=== PATIENT | male | born 1960 | race American Indian/Alaskan Native ===

== ENCOUNTER 2017-10-14 13:37 | Inpatient (IN) | payer OTHER ==
[2017-10-14] MEDS ORDERED: Albuterol-Ipratrop 3 mg / 0.5 (3 ml) UD IH STA (14:14)
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
[2017-10-14 14:36] LABS: BASO # 0.01 K/mm3 (0.0-2.0); BASO % 0.1 % (0.0-3.0); GRAN # 11.84 (1.4-6.5); GRAN % 81.3 % (50.0-68.0); HEMATOCRIT 42.3 % (42.0-52.0); LYMPH # 1.6 (1.2-3.4); LYMPH % 10.9 % (22.0-35.0); MEAN CELL VOLUME 87.8 fl (80.0-105.0); MEAN CORPUSCULAR HEMOGLOBIN 30.1 pg (25.0-35.0); MEAN CORPUSCULAR HGB CONC 34.3 g/dl (31.0-37.0); MEAN PLATELET VOLUME 11.8 fl (7.0-11.0); MONO # 1.1 (0.1-0.6); MONO % 7.7 % (1.0-6.0); RED CELL DISTRIBUTION WIDTH 12.8 % (11.5-14.5); WHITE BLOOD COUNT 14.6 10^3/ul (4.5-11.0)
[2017-10-14 14:57] LABS: INR 1.52 (0.93-1.08); PARTIAL THROMBOPLASTIN TIME 34.1 Seconds (25.1-36.5)
[2017-10-14] MEDS: Lactated Ringer's 1,000 ML IV SCH ×4 (15:04→19:40)
[2017-10-14 15:10] LABS: ALB/GLOB RATIO 0.7 (1.1-1.8); ALKALINE PHOSPHATASE 104 U/L (38-126); ALT/SGPT 62 U/L (7-56); AST/SGOT 62 U/L (17-59); CALCIUM 9.5 mg/dL (8.4-10.5); CARBON DIOXIDE 26 mmol/L (21-33); CHLORIDE 93 mmol/L (98-107); GFR AFRICAN-AMERICAN 58
[2017-10-14 15:11] LABS: BILIRUBIN,TOTAL 1.6 mg/dL (0.2-1.3); BLOOD UREA NITROGEN 18 mg/dL (7-21); GLUCOSE,RANDOM 117 mg/dL (70-110); MAGNESIUM 1.4 mg/dL (1.7-2.2); POTASSIUM 3.7 mmol/L (3.6-5.0); SODIUM 131 mmol/L (132-148); TOTAL PROTEIN 9.4 g/dL (5.8-8.3); TROPONIN I < 0.01 ng/mL
[2017-10-14] MEDS ORDERED: Magnesium Sulfate 1 gm in D5W 1 GM/100 ML BAG IVPB ONE (15:38)
[2017-10-14] MEDS ORDERED: Iodixanol 320 MG/ML 100 ML BOTTLE IV ONE (15:47)
[2017-10-14] MEDS ORDERED: Piperacill/Tazo 4.5gm in NS 4.5 GM/100 ML BAG IVPB STA (16:52)
[2017-10-14 17:27] LABS: VENOUS BLOOD GAS BASE EXCESS 2.1 mmol/L (0.0-2.0); VENOUS BLOOD PH 7.47 (7.32-7.43)
--- NOTE | 2017-10-14 17:51 | CT ---
PROCEDURE: CT Chest with contrast (Pulmonary Angiogram) HISTORY: 57yoM, hemoptysis, elevated d-dimer. please eval. COMPARISON: None available. TECHNIQUE: Axial computed tomography images were obtained of the chest in the pulmonary arterial phase of enhancement. Coronal and sagittal reformatted images were created and reviewed. . Note that the study is somewhat limited due to suboptimal opacification of the pulmonary vasculature Intravenous contrast dose: 90 cc Visipaque 320 contrast. Tech all Radiation dose: Total exam DLP = 754.26 mGy-cm. This CT exam was performed using one or more of the following dose reduction techniques: Automated exposure control, adjustment of the mA and/or kV according to patient size, and/or use of iterative reconstruction technique. FINDINGS: PULMONARY ARTERIES: The visualized of pulmonary trunk as well as the right and left main pulmonary arteries are well opacified with no large central pulmonary embolus. The right lower and to a lesser degree distal left lower lobe and segmental pulmonary artery branches not well seen due to the aforementioned consolidation/atelectasis overall the main lobar branches appear. Note however that the few right upper and lower lobe segmental branches exhibit areas of diminished contrast which could represent artifact the possibility of nonocclusive small pulmonary emboli cannot be excluded. Pulmonary trunk measures approximately 2.95 cm. AORTA: Ascending thoracic aorta measures approximately 3.14 cm and descending thoracic aorta measures approximately 2.35 cm. LUNGS: There is relatively dense consolidation/ atelectatic changes in the medial aspect right posterior sulcus - lung base. There also at linear areas of scarring and or atelectasis in the superior aspect of the right lower lobe extending to the pleural surface as well as anterior right lung base and middle lobe regions. Linear/nodular atelectasis and/or minor consolidation changes also seen in the left posterior sulcus with scarring and atelectasis in the left anterior lower lobe and lingular region. . PLEURAL SPACES: No evidence of pneumothorax. No effusion. HEART: The heart is normal size. No significant pericardial effusion. LYMPH NODES: No lymphadenopathy. BONES, CHEST WALL: Multilevel degenerative spondylosis of the thoracic spine. There is a prominent posterior bridging osteophyte at T6-T7 level which compresses the ventral surface of the thecal sac and presumably mildly compresses the ventral surface of the cord. Degenerative spondylosis lower cervical spine also noted. OTHER FINDINGS: Spleen is upper limits of normal measuring approximately 12.5 cm in AP dimension. . There may be some minimal fatty hepatic infiltration. The remaining visualized upper abdominal structures appear grossly unremarkable. IMPRESSION: Limited study as described. There is an area of consolidation/ atelectasis in the posteromedial aspect right lower lobe with areas of scarring/ atelectasis in both lung bases including the middle lobe and lingular regions. . Linear atelectasis/scarring also seen in the superior on segment right lower lobe. There are a few small segmental pulmonary artery branches in the upper lobes that exhibits diminished contrast enhancement which could represent artifact though the possibility of a few small nonocclusive emboli cannot be excluded. Clinical correlation recommended.
[2017-10-14] MEDS ORDERED: Azithromycin 500MG/NS 250ml 500 MG/250 ML BAG IVPB STA (18:23)
[2017-10-14 22:44] VITALS: BMI 29.9
[2017-10-15] MEDS: Sodium Chloride 0.9% 1,000 ML IV SCH ×2 (00:36→11:11)
[2017-10-15] MEDS ORDERED: Piperacillin/Tazobact 3.375 gm 100 ML IVPB SCH (06:00)
[2017-10-15 06:53] LABS: BASO # 0.02 K/mm3 (0.0-2.0); BASO % 0.2 % (0.0-3.0); EOS % 0.1 % (1.5-5.0); GRAN # 10.13 (1.4-6.5); GRAN % 81.8 % (50.0-68.0); HEMATOCRIT 37.6 % (42.0-52.0); LYMPH # 1.6 (1.2-3.4); LYMPH % 12.5 % (22.0-35.0); MEAN CELL VOLUME 88.1 fl (80.0-105.0); MEAN CORPUSCULAR HEMOGLOBIN 29.5 pg (25.0-35.0); MEAN CORPUSCULAR HGB CONC 33.5 g/dl (31.0-37.0); MEAN PLATELET VOLUME 11.6 fl (7.0-11.0); MONO # 0.7 (0.1-0.6); MONO % 5.4 % (1.0-6.0); RED CELL DISTRIBUTION WIDTH 13.3 % (11.5-14.5); WHITE BLOOD COUNT 12.4 10^3/ul (4.5-11.0)
[2017-10-15 07:10] LABS: BLOOD UREA NITROGEN 16 mg/dL (7-21); CALCIUM 8.7 mg/dL (8.4-10.5); CARBON DIOXIDE 30 mmol/L (21-33); CHLORIDE 98 mmol/L (98-107); GFR AFRICAN-AMERICAN > 60; GLUCOSE,RANDOM 98 mg/dL (70-110); POTASSIUM 3.9 mmol/L (3.6-5.0); SODIUM 136 mmol/L (132-148)
[2017-10-15] MEDS: Lactated Ringer's 1,000 ML IV SCH (09:43)
[2017-10-15] MEDS: cefTRIAXone 1 gm 1 GM/100 ML BAG IVPB SCH (10:27)
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
[2017-10-15] MEDS: Azithromycin 500MG/NS 250ml 500 MG/250 ML BAG IVPB SCH (11:00)
[2017-10-15] MEDS: Vancomycin 1gm in NS 250ml 1 GM/250 ML BAG IVPB SCH ×2 (11:07→22:14)
--- NOTE | 2017-10-15 20:09 | CARD ---
APPROVED REPORT EKG Measurement Heart [id number] <Conclusion> Sinus tachycardia Otherwise normal ECG
[2017-10-16] MEDS: Vancomycin 1gm in NS 250ml 1 GM/250 ML BAG IVPB SCH ×2 (09:00→22:06)
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
[2017-10-16] MEDS: cefTRIAXone 1 gm 1 GM/100 ML BAG IVPB SCH (11:38)
[2017-10-16] MEDS: Sodium Chloride 0.9% 1,000 ML IV SCH (11:39)
--- NOTE | 2017-10-16 13:07 | US ---
HISTORY: Leg pain and swelling. Evaluate for DVT PHYSICIAN(S): Mika Courtney MD. TECHNIQUE: Duplex sonography and color-flow Doppler with graded compression were used to evaluate the deep venous systems of both lower extremities. FINDINGS: The visualized deep venous systems of both lower extremities are sonographically normal and compressible. Normal wave forms and augmentation are seen. There is no sonographic evidence for deep venous thrombosis in the visualized segments of both lower extremities. IMPRESSION: No sonographic evidence for deep venous thrombosis in the visualized segments of both lower extremities.
[2017-10-16] MEDS: Azithromycin 500MG/NS 250ml 500 MG/250 ML BAG IVPB SCH (14:30)
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
--- NOTE | 2017-10-16 22:37 | CARD ---
APPROVED REPORT EXAM: Two-dimensional and M-mode echocardiogram with Doppler and color Doppler. INDICATION Infection:Rule out subacute bacterial endocarditis 2D DIMENSIONS Left Atrium (2D)4.2 (1.6-4.0cm)IVSd1.3 (0.7-1.1cm) LVDd4.7 (3.9-5.9cm)PWd1.3 (0.7-1.1cm) LVDs3.3 (2.5-4.0cm)FS (%) 29.2 % LVEF (%)55.9 (>50%) M-Mode DIMENSIONS Aortic Root3.10 (2.2-3.7cm)Aortic Cusp Exc.1.60 (1.5-2.0cm) Aortic Valve AoV Peak Noreivqb068.0cm/Sandee Peak GR.8mmHg Mitral Valve MV E Gvawlhef10.6cm/sMV A Bplvptmb56.5cm/sE/A ratio0.9 TDI Lateral E' Peak V10.50cm/sMedial E' Peak V6.73cm/sE/Lateral E'6.9 E/Medial E'10.8 Pulmonary Valve PV Peak Ehweqawn87.2cm/sPV Peak Grad.2mmHg Tricuspid Valve TR Peak Mavfirbh316om/sRAP EKZAGMIC31pmZfWL Peak Gr.31mmHg [id number] LEFT VENTRICLE The left ventricle is normal size. There is mild concentric left ventricular hypertrophy. The left ventricular function is normal. The left ventricular ejection fraction is within the normal range. There is normal LV segmental wall motion. Transmitral Doppler flow pattern is Grade I-abnormal relaxation pattern. RIGHT VENTRICLE The right ventricle is normal size. There is normal right ventricular wall thickness. The right ventricular systolic function is normal. ATRIA The left atrium is borderline dilated. The right atrium size is normal. AORTIC VALVE The aortic valve is moderately thickened, a vegitation can not be ruled out No aortic regurgitation is present. MITRAL VALVE The mitral valve is mildly thickened. There is no mitral valve regurgitation noted. There is no mitral valve stenosis. TRICUSPID VALVE There is mild tricuspid regurgitation. There is mild pulmonary hypertension. GREAT VESSELS The aortic root is normal in size. The IVC is normal in size and collapses >50% with inspiration. <Conclusion> The left ventricle is normal size. There is mild concentric left ventricular hypertrophy. The left ventricular function is normal. The left ventricular ejection fraction is within the normal range. There is normal LV segmental wall motion. Transmitral Doppler flow pattern is Grade I-abnormal relaxation pattern. There is mild tricuspid regurgitation. There is mild pulmonary hypertension. The aortic valve is moderately thickened, a vegitation can not be ruled out
--- NOTE | 2017-10-17 01:22 | CP.PCM.PN ---
Subjective - Date & Time of Evaluation Date of Evaluation: 10/16/17 Time of Evaluation: 10:30 - Subjective Subjective: Seen and examined at the bed side. Still continue to cough and Less Hemoptysis. Denies fever. +Chills. ON Airborne Isolation. ID input appreciated. Objective - Vital Signs/Intake and Output Vital Signs (last 24 hours): Temp Pulse Resp BP Pulse Ox 98.9 F 85 20 140/98 H 98 10/16/17 16:00 10/16/17 16:00 10/16/17 16:00 10/16/17 16:00 10/16/17 16:00 Intake and Output: 10/16/17 10/17/17 18:59 06:59 Intake Total 600 480 Output Total 200 1000 Balance 400 -520 - Medications Medications: Current Medications Acetaminophen (Tylenol 325mg Tab) 650 mg PO Q6H PRN PRN Reason: Fever >100.5 F Last Admin: 10/15/17 00:38 Dose: 650 mg Acetaminophen (Tylenol 325mg Tab) 650 mg PO Q4H PRN PRN Reason: Fever >100.4 F Amlodipine Besylate (Norvasc) 10 mg PO DAILY [facility] Last Admin: 10/16/17 11:31 Dose: 10 mg Azithromycin (Zithromax 500mg In Ns) 500 mg in 250 mls @ 167 mls/hr IVPB DAILY [facility] PRN Reason: Protocol Last Admin: 10/16/17 14:30 Dose: 167 mls/hr Sodium Chloride (Sodium Chloride 0.9%) 1,000 mls @ 100 mls/hr IV .Q10H [facility] Last Admin: 10/16/17 11:39 Dose: 100 mls/hr Ceftriaxone Sodium (Rocephin 1 Gram Ivpb (D5w)) 1 gm in 100 mls @ 100 mls/hr IVPB DAILY [facility] PRN Reason: Protocol Last Admin: 10/16/17 11:38 Dose: 100 mls/hr Vancomycin HCl (Vancomycin 1gm) 1 gm in 250 mls @ 167 mls/hr IVPB Q12H [facility] PRN Reason: Protocol Last Admin: 10/16/17 22:06 Dose: 167 mls/hr - Labs Labs: 10/15/17 06:00 10/15/17 06:00 PT 16.7 SECONDS (9.4-12.5) H 10/14/17 14:20 INR 1.52 (0.93-1.08) H 10/14/17 14:20 APTT 34.1 Seconds (25.1-36.5) 10/14/17 14:20 - Constitutional Appears: Well, No Acute Distress - Head Exam Head Exam: ATRAUMATIC, NORMAL INSPECTION, NORMOCEPHALIC - Eye Exam Eye Exam: EOMI, Normal appearance, PERRL Pupil Exam: NORMAL ACCOMODATION, PERRL - ENT Exam ENT Exam: Mucous Membranes Moist, Normal Exam - Neck Exam Neck Exam: Full ROM, Normal Inspection. absent: Lymphadenopathy - Respiratory Exam Respiratory Exam: Clear to Ausculation Bilateral, Rales. absent: Rhonchi, Wheezes - Cardiovascular Exam Cardiovascular Exam: REGULAR RHYTHM, +S1, +S2. absent: Murmur - GI/Abdominal Exam GI & Abdominal Exam: Soft, Normal Bowel Sounds. absent: Tenderness - Extremities Exam Extremities Exam: Full ROM, Normal Capillary Refill, Normal Inspection. absent : Joint Swelling, Pedal Edema - Back Exam Back Exam: NORMAL INSPECTION - Neurological Exam Neurological Exam: Alert, Awake, CN II-XII Intact, Normal Gait, Oriented x3 - Psychiatric Exam Psychiatric exam: Normal Affect, Normal Mood - Skin Skin Exam: Dry, Intact, Normal Color, Warm Assessment and Plan (1) Sepsis Assessment & Plan: Pneumonia Hemoptysis H/O HIV AFB X3 Sputum Cultures Blood Culture- +Staph IV Azithromycin/Vancomycin/Zosyn HIV Viral Load and CD4 Count ID onboard 2D Echo Status: Acute Priority: High (2) Essential (primary) hypertension (3) HIV/AIDS HIV Viral Load CD4 Count Status: Resolved
[2017-10-17] MEDS: Sodium Chloride 0.9% 1,000 ML IV SCH ×4 (06:00→22:36)
[2017-10-17] MEDS: Azithromycin 500MG/NS 250ml 500 MG/250 ML BAG IVPB SCH (10:24)
[2017-10-17] MEDS: cefTRIAXone 1 gm 1 GM/100 ML BAG IVPB SCH (13:05)
[2017-10-17] MEDS: Vancomycin 1gm in NS 250ml 1 GM/250 ML BAG IVPB SCH (13:06)
--- NOTE | 2017-10-17 15:59 | PN ---
DATE: 10/17/2017 SUBJECTIVE: The patient is in bed, in no acute distress, nontoxic. PHYSICAL EXAMINATION: VITAL SIGNS: Temperature is 98, blood pressure is 140/80, respiratory rate of 20. HEENT: Unremarkable and supple. LUNGS: Have decreased breath sounds. HEART: Normal S1, S2. ABDOMEN: Soft, nontender. LABORATORY DATA: Reveals a white count of 12,400, hemoglobin of 12, platelets of 142. Chemistries reveals a BUN of 16, creatinine of 1.2. Serology is noted. HIV is positive, reactive, influenza is negative. Microbiology reveals the strep pneumoniae in the blood cultures. ASSESSMENT AND PLAN: A 57-year-old male seen early this morning with sepsis with right-sided community-acquired pneumonia with strep pneumonia bacteremia with hypertension with positive human immunodeficiency virus test. With acid-fast stains negative, may discontinue isolation. Strep pneumoniae bacteremia does not require isolation. Awaiting for HIV viral load and CD-4 count. Currently, on ceftriaxone daily and vancomycin. The Strep pneumoniae in the blood is pansensitive, oxacillin sensitive, vancomycin sensitive and penicillin sensitive. We will discontinue the vancomycin. Will need to repeat blood cultures, document negative blood cultures, can discontinue the isolation. We will also discontinue Zithromax, and the patient had an echo yesterday which according to Dr. Lou, aortic valve is moderately thickened and vegetation cannot be ruled out. We will check on the repeat blood cultures and discontinue the isolation. We will also increase the ceftriaxone dose for endocarditis dosing. We will discontinue 1 g q. 24 hours to 2 g q. 24 hours, and we will make further recommendation. We will discuss with the patient regarding his HIV status, and the patient did have a CT scan of the chest with consolidation and changes in the medial aspect of the lung base, and we will make further recommendations. Dillan Henson MD
--- NOTE | 2017-10-17 18:07 | CP.PCM.PN ---
Subjective - Date & Time of Evaluation Date of Evaluation: 10/17/17 Time of Evaluation: 09:30 - Subjective Subjective: Seen and examined at the bed side. AFB X3 Negative, and Gold Interferon- Negative. D/C airborne Isolation. Objective - Vital Signs/Intake and Output Vital Signs (last 24 hours): Temp Pulse Resp BP Pulse Ox 98.9 F 75 18 143/85 100 10/17/17 07:30 10/17/17 07:30 10/17/17 07:30 10/17/17 10:15 10/17/17 07:30 Intake and Output: 10/17/17 10/17/17 06:59 18:59 Intake Total 720 480 Output Total 1000 Balance -280 480 - Medications Medications: Current Medications Acetaminophen (Tylenol 325mg Tab) 650 mg PO Q6H PRN PRN Reason: Fever >100.5 F Last Admin: 10/15/17 00:38 Dose: 650 mg Acetaminophen (Tylenol 325mg Tab) 650 mg PO Q4H PRN PRN Reason: Fever >100.4 F Amlodipine Besylate (Norvasc) 10 mg PO DAILY [facility] Last Admin: 10/17/17 10:15 Dose: 10 mg Sodium Chloride (Sodium Chloride 0.9%) 1,000 mls @ 100 mls/hr IV .Q10H [facility] Last Admin: 10/17/17 12:46 Dose: 100 mls/hr Ceftriaxone Sodium (Rocephin 2 Gm Ivpb) 2 gm in 100 mls @ 100 mls/hr IVPB DAILY [facility] PRN Reason: Protocol Stop: 10/27/17 10:01 - Labs Labs: 10/15/17 06:00 10/15/17 06:00 PT 16.7 SECONDS (9.4-12.5) H 10/14/17 14:20 INR 1.52 (0.93-1.08) H 10/14/17 14:20 APTT 34.1 Seconds (25.1-36.5) 10/14/17 14:20 - Constitutional Appears: Well, No Acute Distress - Head Exam Head Exam: ATRAUMATIC, NORMAL INSPECTION, NORMOCEPHALIC - Eye Exam Eye Exam: EOMI, Normal appearance, PERRL Pupil Exam: NORMAL ACCOMODATION, PERRL - ENT Exam ENT Exam: Mucous Membranes Moist, Normal Exam - Neck Exam Neck Exam: Full ROM, Normal Inspection. absent: Lymphadenopathy - Respiratory Exam Respiratory Exam: Clear to Ausculation Bilateral, NORMAL BREATHING PATTERN - Cardiovascular Exam Cardiovascular Exam: REGULAR RHYTHM, +S1, +S2. absent: Murmur - GI/Abdominal Exam GI & Abdominal Exam: Soft, Normal Bowel Sounds. absent: Tenderness - Exam Exam: NORMAL INSPECTION External exam: NORMAL EXTERNAL EXAM Speculum exam: NORMAL SPECULUM EXAM Bimanual exam: NORMAL BIMANUAL EXAM - Extremities Exam Extremities Exam: Full ROM, Normal Capillary Refill, Normal Inspection. absent : Joint Swelling, Pedal Edema - Back Exam Back Exam: NORMAL INSPECTION - Neurological Exam Neurological Exam: Alert, Awake, CN II-XII Intact, Normal Gait, Oriented x3 - Psychiatric Exam Psychiatric exam: Normal Affect, Normal Mood - Skin Skin Exam: Dry, Intact, Normal Color, Warm Assessment and Plan (1) Sepsis Assessment & Plan: S. PNA Bactremia Pneumonia- Improving Hemoptysis-resolved H/O HIV AFB X3- Negative Sputum Cultures Blood Culture- +Strep Pneumoniea IV Azithromycin/Vancomycin/Zosyn ID onboard Status: Acute Priority: High (2) Essential (primary) hypertension (3) HIV/AIDS HIV Viral Load CD4 Count Status: Resolved
--- NOTE | 2017-10-18 09:45 | PN ---
DATE: 10/18/2017 SUBJECTIVE: The patient is in bed in no acute distress, nontoxic. No fevers or chills. PHYSICAL EXAMINATION: VITAL SIGNS: The patient's temperature is 98, blood pressure is 130/80, and respiratory rate of 18. HEENT: Examination of HEENT is unremarkable. NECK: Supple. LUNGS: Have decreased breath sounds. HEART: Normal S1 and S2. GASTROINTESTINAL: Abdominal examination is soft and nontender. LABORATORY DATA: Laboratory examination reveals a white count of 12,400, hemoglobin of 12, and platelets of 142. Coagulation is noted and the chemistries reveals a BUN of 18, and creatinine of 1.5. AST is 62 and ALT is 62. Procalcitonin is 1.32. Immunology reveals the patient's CD4 count is 18% with an absolute CD4 count of 211. With the patient's HIV is reactive, influenza is negative. Urine Legionella antigen is negative and QuantiFERON is negative. Microbiology reveals the Strep pneumonia in the blood and repeat blood cultures are no growth. The Strep pneumoniae is pansensitive. Dr. Natasha Natarajan's progress note is reviewed. ASSESSMENT AND PLAN: This is a 57-year-old male who I have seen this morning, admitted with sepsis with right-sided community-acquired pneumonia with Streptococcus pneumonia, bacteremia with a history of hypertension, now found to have positive human immunodeficiency virus test with T-cells of 18% and 211 absolute count and awaiting for a human immunodeficiency virus and polymerase chain reaction. The patient did have an echocardiogram. We will check on the repeat final cultures which is so far 24 hours are negative and we will continue the ceftriaxone at this point. We will discuss with the patient's human immunodeficiency virus status once I have the human immunodeficiency virus, polymerase chain reaction viral load. Dillan Henson MD
[2017-10-18] MEDS: cefTRIAXone 2 GM IN NS 2 GM/100 ML BAG IVPB SCH (10:20)
[2017-10-18] MEDS: Sodium Chloride 0.9% 1,000 ML IV SCH (18:30)
--- NOTE | 2017-10-19 02:17 | CP.PCM.PN ---
Subjective - Date & Time of Evaluation Date of Evaluation: 10/18/17 Time of Evaluation: 13:00 - Subjective Subjective: Seen and examined at the bed side. Continues to cough. Repeat Blood cultures. Denies chest pain. No More hemoptysis. Collecting sputum for G/s and C/S. Objective - Vital Signs/Intake and Output Vital Signs (last 24 hours): Temp Pulse Resp BP Pulse Ox 98.4 F 83 20 150/95 H 95 10/18/17 17:14 10/18/17 17:14 10/18/17 17:14 10/18/17 17:14 10/18/17 17:14 Intake and Output: 10/18/17 10/19/17 18:59 06:59 Intake Total 660 Balance 660 - Medications Medications: Current Medications Acetaminophen (Tylenol 325mg Tab) 650 mg PO Q6H PRN PRN Reason: Fever >100.5 F Last Admin: 10/15/17 00:38 Dose: 650 mg Acetaminophen (Tylenol 325mg Tab) 650 mg PO Q4H PRN PRN Reason: Fever >100.4 F Amlodipine Besylate (Norvasc) 10 mg PO DAILY [facility] Last Admin: 10/18/17 10:21 Dose: 10 mg Sodium Chloride (Sodium Chloride 0.9%) 1,000 mls @ 100 mls/hr IV .Q10H [facility] Last Admin: 10/18/17 18:30 Dose: 100 mls/hr Ceftriaxone Sodium (Rocephin 2 Gm Ivpb) 2 gm in 100 mls @ 100 mls/hr IVPB DAILY [facility] PRN Reason: Protocol Stop: 10/27/17 10:01 Last Admin: 10/18/17 10:20 Dose: 100 mls/hr - Labs Labs: 10/15/17 06:00 10/15/17 06:00 PT 16.7 SECONDS (9.4-12.5) H 10/14/17 14:20 INR 1.52 (0.93-1.08) H 10/14/17 14:20 APTT 34.1 Seconds (25.1-36.5) 10/14/17 14:20 - Constitutional Appears: Well, No Acute Distress - Head Exam Head Exam: ATRAUMATIC, NORMAL INSPECTION, NORMOCEPHALIC - Eye Exam Eye Exam: EOMI, Normal appearance, PERRL Pupil Exam: NORMAL ACCOMODATION, PERRL - ENT Exam ENT Exam: Mucous Membranes Moist, Normal Exam - Neck Exam Neck Exam: Full ROM, Normal Inspection. absent: Lymphadenopathy - Respiratory Exam Respiratory Exam: Clear to Ausculation Bilateral, NORMAL BREATHING PATTERN - Cardiovascular Exam Cardiovascular Exam: REGULAR RHYTHM, +S1, +S2. absent: Murmur - GI/Abdominal Exam GI & Abdominal Exam: Soft, Normal Bowel Sounds. absent: Tenderness - Extremities Exam Extremities Exam: Full ROM, Normal Capillary Refill, Normal Inspection. absent : Joint Swelling, Pedal Edema - Back Exam Back Exam: NORMAL INSPECTION - Neurological Exam Neurological Exam: Alert, Awake, CN II-XII Intact, Normal Gait, Oriented x3 - Psychiatric Exam Psychiatric exam: Normal Affect, Normal Mood - Skin Skin Exam: Dry, Intact, Normal Color, Warm Assessment and Plan (1) Sepsis Assessment & Plan: Pneumonia Hemoptysis H/O HIV AFB X3 Sputum Cultures Blood Culture- +Staph IV Azithromycin/Vancomycin/Zosyn HIV Viral Load and CD4 Count ID onboard 2D Echo Status: Acute Priority: High (2) Essential (primary) hypertension (3) HIV/AIDS HIV Viral Load CD4 Count Status: Resolved
[2017-10-19] MEDS: Sodium Chloride 0.9% 1,000 ML IV SCH (05:31)
[2017-10-19] MEDS: cefTRIAXone 2 GM IN NS 2 GM/100 ML BAG IVPB SCH (10:14)
[2017-10-19 12:48] LABS: HEMATOCRIT 38.2 % (42.0-52.0); MEAN CELL VOLUME 87.8 fl (80.0-105.0); MEAN CORPUSCULAR HEMOGLOBIN 29.7 pg (25.0-35.0); MEAN CORPUSCULAR HGB CONC 33.8 g/dl (31.0-37.0); MEAN PLATELET VOLUME 11.2 fl (7.0-11.0); RED CELL DISTRIBUTION WIDTH 13.2 % (11.5-14.5); WHITE BLOOD COUNT 4.7 10^3/ul (4.5-11.0)
[2017-10-19 13:08] LABS: ALB/GLOB RATIO 0.7 (1.1-1.8); ALKALINE PHOSPHATASE 85 U/L (38-126); ALT/SGPT 106 U/L (7-56); AST/SGOT 86 U/L (17-59); BILIRUBIN,TOTAL 0.3 mg/dL (0.2-1.3); BLOOD UREA NITROGEN 12 mg/dL (7-21); CALCIUM 9.4 mg/dL (8.4-10.5); CARBON DIOXIDE 25 mmol/L (21-33); CHLORIDE 99 mmol/L (98-107); GFR AFRICAN-AMERICAN > 60; GLUCOSE,RANDOM 113 mg/dL (70-110); SODIUM 137 mmol/L (132-148); TOTAL PROTEIN 9.1 g/dL (5.8-8.3)
--- NOTE | 2017-10-19 14:57 | PN ---
DATE: 10/19/2017 SUBJECTIVE: The patient is in bed, in no acute distress, and nontoxic. No fevers or chills. PHYSICAL EXAMINATION: VITAL SIGNS: Temperature is 98, blood pressure is 130/80, respiratory rate of 18, and heart rate of 73. HEENT: Examination of HEENT is unremarkable. NECK: Supple. LUNGS: Decreased breath sounds. HEART: Normal S1 and S2. ABDOMEN: Soft and nontender. LABORATORY DATA: Examination reveals a white count of 12,400 and hemoglobin is noted. BUN of 16, creatinine of 1.2, and procalcitonin of 1.32. The patient's T-cells are 18% and 211. Serology is positive for HIV. Review of Dr. Natasha Natarajan's noted. Review of orders are noted. The patient's CAT scan of the chest is reviewed. The patient's echo reviewed. Repeat cultures are negative. ASSESSMENT AND PLAN: He is a 57-year-old male who was seen early this morning with sepsis with right-sided community-acquired pneumonia with Streptococcus pneumonia bacteremia, and history of hypertension. Actually the patient states that he has been positive human immunodeficiency virus for many years. He initially had taken AZT for sometime, however more recently, he has not been on any medications for many years and now was admitted with sepsis, Streptococcus pneumonia bacteremia and pneumonia, and last white count was 12,400. The patient never had a chest x-ray. We will order a CBC right now and chest x-ray and a repeat procalcitonin and repeat echo. We will make a decision sedimentation rate and C-reactive protein. Continue ceftriaxone. We will follow closely with you. Dillan Henson MD
--- NOTE | 2017-10-19 16:27 | RAD ---
HISTORY: pna COMPARISON: 12/13/2013 TECHNIQUE: Chest PA and lateral FINDINGS: LUNGS: There is minimal linear atelectasis at the right lung base PLEURA: No significant pleural effusion identified. No pneumothorax apparent. CARDIOVASCULAR: Normal. OSSEOUS STRUCTURES: No significant abnormalities. VISUALIZED UPPER ABDOMEN: Normal. OTHER FINDINGS: None. IMPRESSION: No active disease.
[2017-10-20 07:59] VITALS: PULSE 83; RESP 20; TEMP 98.6; O2SAT 97
[2017-10-20] MEDS: Sodium Chloride 0.9% 1,000 ML IV SCH (10:56)
[2017-10-20] MEDS: cefTRIAXone 2 GM IN NS 2 GM/100 ML BAG IVPB SCH (10:56)
[2017-10-20 10:58] VITALS: BP 142/90
--- NOTE | 2017-10-20 18:31 | PN ---
DATE: 10/20/2017 SUBJECTIVE: The patient is in bed, in no acute distress, was seen early this morning in 556, bed 3, doing well. PHYSICAL EXAMINATION: VITAL SIGNS: Temperature is 98, blood pressure is 120/70, respiratory rate of 16. HEENT: Unremarkable. NECK: Supple. LUNGS: Have decreased breath sounds. HEART: Normal S1, S2. ABDOMEN: Soft, nontender. LABORATORY DATA: Reveals the patient's white count of 4.7, hemoglobin of 12, platelets of 247. Chemistries reveal a BUN of 12, creatinine of 1.1. Procalcitonin is 0.19. Immunology is noted with a T-cells of 18% of 211. The patient's HIV PCR is pending. His HIV is positive. ASSESSMENT AND PLAN: This is a 57-year-old male who was seen early this morning with sepsis, right-sided community acquired pneumonia with Streptococcus pneumoniae bacteremia, history of hypertension. The patient states that he has been HIV positive for many years. He has not been on his medications and he is to follow up with me in the office next , we will initiate HIV therapy. His genotype and polymerase chain reaction is pending, and we will follow with you. The patient's repeat echo is pending. Dillan Henson MD
--- NOTE | 2017-10-21 02:09 | CP.PCM.PN ---
Subjective - Date & Time of Evaluation Date of Evaluation: 10/19/17 Time of Evaluation: 23:00 - Subjective Subjective: Seen and examined at the bed side. Feeling better. Denies chest pain. Agreed to go for RX for HIV/AIDS. Waiting ID Clearance and Repeat Blood Culture results. Objective - Vital Signs/Intake and Output Vital Signs (last 24 hours): Temp Pulse Resp BP Pulse Ox 98.6 F 83 20 142/90 97 10/20/17 07:30 10/20/17 07:30 10/20/17 07:30 10/20/17 10:55 10/20/17 07:30 - Labs Labs: 10/19/17 12:44 10/19/17 12:44 PT 16.7 SECONDS (9.4-12.5) H 10/14/17 14:20 INR 1.52 (0.93-1.08) H 10/14/17 14:20 APTT 34.1 Seconds (25.1-36.5) 10/14/17 14:20 - Constitutional Appears: Well, Non-toxic, No Acute Distress - Head Exam Head Exam: ATRAUMATIC, NORMAL INSPECTION, NORMOCEPHALIC - Eye Exam Eye Exam: EOMI, Normal appearance, PERRL Pupil Exam: NORMAL ACCOMODATION, PERRL - ENT Exam ENT Exam: Mucous Membranes Moist, Normal Exam - Neck Exam Neck Exam: Full ROM, Normal Inspection. absent: Lymphadenopathy - Respiratory Exam Respiratory Exam: Clear to Ausculation Bilateral, NORMAL BREATHING PATTERN - Cardiovascular Exam Cardiovascular Exam: REGULAR RHYTHM, +S1, +S2. absent: Murmur - GI/Abdominal Exam GI & Abdominal Exam: Soft, Normal Bowel Sounds. absent: Tenderness - Extremities Exam Extremities Exam: Full ROM, Normal Capillary Refill, Normal Inspection. absent : Joint Swelling, Pedal Edema - Back Exam Back Exam: NORMAL INSPECTION - Neurological Exam Neurological Exam: Alert, Awake, CN II-XII Intact, Normal Gait, Oriented x3 - Psychiatric Exam Psychiatric exam: Normal Affect, Normal Mood - Skin Skin Exam: Dry, Intact, Normal Color, Warm - Additional Findings Additional findings: U/S Venous Doppler of B/L LE: IMPRESSION: No sonographic evidence for deep venous thrombosis in the visualized segments of both lower extremities. Assessment and Plan (1) Sepsis Assessment & Plan: Pneumonia- Improving Hemoptysis-REsolved H/O HIV AFB X3- Negative Blood Culture- +Strep Pneumonie IV Azithromycin/Vancomycin/Zosyn Absolute CD4 Count 211 Status: Acute Priority: High (2) Essential (primary) hypertension (3) HIV/AIDS HIV Viral Load CD4 Count Status: Resolved
--- NOTE | 2017-10-21 02:11 | CP.PCM.DIS ---
Provider - Provider Date of Admission: 10/14/17 18:34 Attending physician: Natasha Natarajan MD Primary care physician: Tacho Garrett MD Time Spent in preparation of Discharge (in minutes): 30 Diagnosis - Discharge Diagnosis (1) Sepsis Status: Resolved Priority: High Comment: Pneumonia (2) Essential (primary) hypertension Status: Chronic Priority: Low (3) History of HIV or AIDS Status: Chronic Hospital Course - Lab Results Lab Results: Micro Results 10/16/17 11:45 Blood-Venous Blood Culture - Preliminary NO GROWTH AFTER 4 DAYS 10/16/17 11:30 Blood-Venous Blood Culture - Preliminary NO GROWTH AFTER 4 DAYS 10/16/17 08:33 Other: Please Indicate Mycobacterial Culture - Preliminary 10/15/17 07:00 Other: Please Indicate Mycobacterial Culture - Preliminary Most Recent Lab Values WBC 4.7 10^3/ul (4.5-11.0) D 10/19/17 12:44 RBC 4.35 10^6/uL (3.5-6.1) 10/19/17 12:44 Hgb 12.9 g/dL (14.0-18.0) L 10/19/17 12:44 Hct 38.2 % (42.0-52.0) L 10/19/17 12:44 MCV 87.8 fl (80.0-105.0) 10/19/17 12:44 MCH 29.7 pg (25.0-35.0) 10/19/17 12:44 MCHC 33.8 g/dl (31.0-37.0) 10/19/17 12:44 RDW 13.2 % (11.5-14.5) 10/19/17 12:44 Plt Count 247 10^3/uL (120.0-450.0) 10/19/17 12:44 MPV 11.2 fl (7.0-11.0) H 10/19/17 12:44 Gran % 81.8 % (50.0-68.0) H 10/15/17 06:00 Lymph % (Auto) 12.5 % (22.0-35.0) L 10/15/17 06:00 Blount % (Auto) 5.4 % (1.0-6.0) 10/15/17 06:00 Eos % (Auto) 0.1 % (1.5-5.0) L 10/15/17 06:00 Baso % (Auto) 0.2 % (0.0-3.0) 10/15/17 06:00 Gran # 10.13 (1.4-6.5) H 10/15/17 06:00 Lymph # 1.6 (1.2-3.4) 10/15/17 06:00 Blount # 0.7 (0.1-0.6) H 10/15/17 06:00 Eos # 0.0 (0.0-0.7) 10/15/17 06:00 Baso # 0.02 K/mm3 (0.0-2.0) 10/15/17 06:00 ESR 115 mm/hr (0.00-15.0) H 10/19/17 12:44 PT 16.7 SECONDS (9.4-12.5) H 10/14/17 14:20 INR 1.52 (0.93-1.08) H 10/14/17 14:20 APTT 34.1 Seconds (25.1-36.5) 10/14/17 14:20 D-Dimer, Quantitative 490 ng/mL (0-243) H 10/14/17 14:20 pO2 70 mm/Hg (30-55) H 10/14/17 17:00 VBG pH 7.47 (7.32-7.43) H 10/14/17 17:00 VBG pCO2 35.0 (40-60) L 10/14/17 17:00 VBG HCO3 25.5 mmol/l (21-28) 10/14/17 17:00 VBG Total CO2 26.6 mmol.L (22-28) 10/14/17 17:00 VBG O2 Sat (Calc) 97.7 % (40-65) H 10/14/17 17:00 VBG Base Excess 2.1 mmol/L (0.0-2.0) H 10/14/17 17:00 VBG Potassium 3.7 mmol/L (3.6-5.2) 10/14/17 17:00 Sodium 129.0 mmol/L (132-148) L 10/14/17 17:00 Chloride 96.0 mmol/L (98-107) L 10/14/17 17:00 Glucose 116 mg/dl (75-110) H 10/14/17 17:00 Lactate 1.9 mmol/L (0.7-2.1) 10/14/17 17:00 FiO2 21.0 % 10/14/17 17:00 Sodium 137 mmol/L (132-148) 10/19/17 12:44 Potassium 4.0 mmol/L (3.6-5.0) 10/19/17 12:44 Chloride 99 mmol/L (98-107) 10/19/17 12:44 Carbon Dioxide 25 mmol/L (21-33) 10/19/17 12:44 Anion Gap 17 (10-20) 10/19/17 12:44 BUN 12 mg/dL (7-21) 10/19/17 12:44 Creatinine 1.1 mg/dl (0.8-1.5) 10/19/17 12:44 Est GFR ( Amer) > 60 10/19/17 12:44 Est GFR (Non-Af Amer) > 60 10/19/17 12:44 Random Glucose 113 mg/dL (70-110) H 10/19/17 12:44 Calcium 9.4 mg/dL (8.4-10.5) 10/19/17 12:44 Magnesium 1.4 mg/dL (1.7-2.2) L 10/14/17 14:20 Total Bilirubin 0.3 mg/dL (0.2-1.3) 10/19/17 12:44 AST 86 U/L (17-59) H D 10/19/17 12:44 ALT 106 U/L (7-56) H 10/19/17 12:44 Alkaline Phosphatase 85 U/L (38-126) 10/19/17 12:44 Lactate Dehydrogenase 530 U/L (333-699) 10/14/17 14:20 Total Creatine Kinase 714 U/L (35-230) H 10/14/17 14:20 CK-MB (CK-2) 0.6 ng/mL (0.0-3.6) 10/14/17 14:20 CK-MB (CK-2) % Cancelled 10/14/17 14:20 Troponin I < 0.01 ng/mL 10/14/17 14:20 C-React Prot High Sens > 15.00 mg/L (1.00-3.00) H 10/19/17 12:44 Total Protein 9.1 g/dL (5.8-8.3) H 10/19/17 12:44 Albumin 3.8 g/dL (3.0-4.8) 10/19/17 12:44 Globulin 5.3 gm/dL 10/19/17 12:44 Albumin/Globulin Ratio 0.7 (1.1-1.8) L 10/19/17 12:44 Procalcitonin 0.19 NG/ML (0.19-0.49) 10/19/17 12:44 TSH 3rd Generation 1.19 mIU/mL (0.46-4.68) 10/15/17 06:00 Venous Blood Potassium 3.7 mmol/L (3.6-5.2) 10/14/17 17:00 Absolute Lymphs (Flow) 1203 Cells/mcL (850-3900) 10/16/17 08:00 % CD4 Cells 18 Percent (30-61) L 10/16/17 08:00 Absolute CD4 Count 211 Cells/mcL (490-1740) L 10/16/17 08:00 T-Help/Suppress Ratio 0.24 Ratio (0.86-5.00) L 10/16/17 08:00 % CD8 Cells 73 Percent (12-42) H 10/16/17 08:00 Absolute CD8 Count 877 Cells/mcL (180-1170) 10/16/17 08:00 HIV-1 Antibody Positive (Negative) H 10/15/17 07:00 HIV-2 Antibody Negative (Negative) 10/15/17 07:00 HIV 1&2 Ag/Ab, 4th Gen Reactive (Nonreactive) H 10/15/17 07:00 HIV 1&2 Antibody Screen Reactive (NEGATIVE) 10/15/17 07:00 Influenza Typ A,B (EIA) Negative for flu a/b (NEGATIVE) 10/14/17 19:30 Ur L.pneumophila Ag Negative (NEGATIVE) 10/16/17 19:20 TB Test (QFT) Nil 0.04 IU/mL 10/14/17 18:30 TB Test Mitogen - Nil >10.00 IU/mL 10/14/17 18:30 TB Test TB - Nil <0.00 IU/mL 10/14/17 18:30 TB Test (QFT) Negative (Negative) 10/14/17 18:30 - Hospital Course Hospital Course: A 57yoM with H/O HIV and HTN Hospitalized for Sepsis and Pneumonia after he presented with Cough and Hemoptysis. In the Hospital Course, Pulmonary TB was ruled out with 3 Negative AFB and Negative TB Gold Quanteferon Test. Also patient had Strep Pneumonia Bectremia, and Repeat Blood culture with No Growth 4 days. Patient was treated with IV Antibiotics, Oxygen, and IV Hydration. Discharge Exam - Head Exam Head Exam: NORMAL INSPECTION - Eye Exam Eye Exam: EOMI, Normal appearance, PERRL Pupil Exam: NORMAL ACCOMODATION, PERRL - ENT Exam ENT Exam: Mucous Membranes Moist, Normal Exam - Neck Exam Neck exam: Full Rom, Normal Inspection - Respiratory Exam Respiratory Exam: Clear to PA & Lateral, NORMAL BREATHING PATTERN. absent: Rales, Rhonchi - Cardiovascular Exam Cardiovascular Exam: REGULAR RHYTHM, +S1, +S2 - GI/Abdominal Exam GI & Abdominal Exam: Normal Bowel Sounds, Soft. absent: Tenderness - Extremities Exam Extremities exam: full ROM, normal capillary refill - Back Exam Back exam: NORMAL INSPECTION. absent: CVA tenderness (L), CVA tenderness (R) - Neurological Exam Neurological exam: Alert, CN II-XII Intact, Normal Gait, Oriented x3, Reflexes Normal - Psychiatric Exam Psychiatric exam: Normal Affect, Normal Mood - Skin Skin Exam: Dry, Intact, Normal Color, Warm Discharge Plan - Discharge Medications Prescriptions: Levofloxacin [Levaquin] 500 mg PO DAILY #7 tablet - Follow Up Plan Condition: STABLE Disposition: HOME/ ROUTINE Instructions: Pneumococcal Vaccine for Adults (DC), Pneumonia (DC), Hypertension (DC), Hypertension (GEN) Additional Instructions: Follow-up mora Henson within one week. Follow-up with Natasha Arndt within one week. Referrals: Dillan Henson MD [Staff Provider] - Natasha Natarajan MD [Medical Doctor] -
== END 2017-10-20 13:32 | disposition home or self-care (01) | DRG 871 ==
LOC: ED 13:37 → ERH 18:34 → 2RSO 21:05 → 5RSO 10-15 12:24 → 5RNO 10-18 10:15
PROVIDERS: ADMIT Internal Medicine; ATTEND Internal Medicine
DX: A40.3 Sepsis due to Streptococcus pneumoniae (principal); J18.9 Pneumonia, unspecified organism; B20 Human immunodeficiency virus [HIV] disease; R04.2 Hemoptysis; J98.11 Atelectasis; I10 Essential (primary) hypertension; F17.210 Nicotine dependence, cigarettes, uncomplicated; E66.9 Obesity, unspecified; Z68.30 Body mass index [BMI] 30.0-30.9, adult